=== PATIENT | male | born 1990 | race African-American/Black ===

== ENCOUNTER 2016-12-22 17:08 | Emergency (ER) | payer OTHER ==
[2016-12-22] MEDS ORDERED: METOCLOPRAMIDE 5 MG/ML 2 ML VIAL IVP STA (17:32)
[2016-12-22] MEDS ORDERED: SODIUM CHLORIDE 0.9% 1,000 ML IV STA (17:32)
[2016-12-22] MEDS ORDERED: diphenhydrAMINE 50 MG/ML 1 ML VIAL IVP STA (17:32)
--- NOTE | 2016-12-22 17:37 | ED ---
Headache HPI - General Chief Complaint: Headache Stated Complaint: migraine x 10 days Time Seen by Provider: 12/22/16 17:27 Mode of arrival: ambulatory Limitations: no limitations - History of Present Illness Initial Comments: 26-year-old male patient presents to emergency department today for complaints of right temporal headache on and off throughout the day, for the last 10 days. Patient states that the pain lasts for a couple hours at a time and then will recede. Patient states that the pain is a sharp throbbing pain. Denies any pain behind the eyes. Denies any neck pain, back pain, nausea, vomiting, photophobia, sound sensitivity, dizziness, or weakness. Denies any use of medications, alcohol, or past medical history. Reports occasional use of marijuana with last intake being 2 months ago. - Related Data Home Medications Medication Instructions Recorded Confirmed Ibuprofen [Advil] 200 - 400 mg PO Q6HR PRN 12/22/16 12/22/16 Previous Rx's Medication Instructions Recorded Butalb/Acetaminophen/Caffeine 1 - 2 each PO Q4H PRN #20 tab 12/22/16 [Fioricet 50-325-40] Allergies Allergy/AdvReac Type Severity Reaction Status Date / Time watermelon Allergy Swelling Verified 12/22/16 17:25 Review of Systems ROS Statement: Those systems with pertinent positive or pertinent negative responses have been documented in the HPI. ROS Other: All systems not noted in ROS Statement are negative. Past Medical History Past Medical History: No Reported History History of Any Multi-Drug Resistant Organisms: None Reported Past Surgical History: No Surgical Hx Reported Past Psychological History: No Psychological Hx Reported Smoking Status: Current every day smoker Past Alcohol Use History: Occasional Past Drug Use History: Marijuana General Exam Limitations: no limitations Course Vital Signs 12/22/16 17:15 Temperature 97.7 F Pulse Rate 62 Respiratory 15 Rate Blood Pressure 132/82 O2 Sat by Pulse 99 Oximetry Medical Decision Making - Medical Decision Making 26-year-old male patient presented to emergency department for complaints of headache. Lab work was obtained and was within normal limits. Noncontrast CT of the brain revealed no acute intracranial abnormalities. The patient was given Benadryl and Reglan as well as IV fluids while here which did improve his headache. Patient will be discharged home with Fioricet and instructions to follow up with his primary care physician in 2-3 days for repeat check. Discussed return parameters with patient. Patient agrees to return for any new , worsening, or concerning symptoms. Patient verbalizes understanding of instructions and agreed to this plan. - Lab Data Result diagrams: 12/22/16 17:45 12/22/16 17:45 Lab Results 12/22/16 12/22/16 Range/Units 17:45 17:45 WBC 6.4 (3.8-10.6) k/uL RBC 5.30 (4.30-5.90) m/uL Hgb 16.6 (13.0-17.5) gm/dL Hct 48.0 (39.0-53.0) % MCV 90.6 (80.0-100.0) fL MCH 31.3 (25.0-35.0) pg MCHC 34.6 (31.0-37.0) g/dL RDW 12.2 (11.5-15.5) % Plt Count 206 (150-450) k/uL Neutrophils % 58 % Lymphocytes % 29 % Monocytes % 5 % Eosinophils % 6 % Basophils % 1 % Neutrophils # 3.7 (1.3-7.7) k/uL Lymphocytes # 1.8 (1.0-4.8) k/uL Monocytes # 0.3 (0-1.0) k/uL Eosinophils # 0.4 (0-0.7) k/uL Basophils # 0.0 (0-0.2) k/uL Sodium 138 (137-145) mmol/L Potassium 4.1 (3.5-5.1) mmol/L Chloride 106 (98-107) mmol/L Carbon Dioxide 24 (22-30) mmol/L Anion Gap 8 mmol/L BUN 15 (9-20) mg/dL Creatinine 0.90 (0.66-1.25) mg/dL Est GFR (MDRD) Af Amer >60 (>60 ml/min/1.73 sqM) Est GFR (MDRD) Non-Af >60 (>60 ml/min/1.73 sqM) Glucose 92 (74-99) mg/dL Calcium 8.8 (8.4-10.2) mg/dL Total Bilirubin 0.3 (0.2-1.3) mg/dL AST 22 (17-59) U/L ALT 28 (21-72) U/L Alkaline Phosphatase 35 L (38-126) U/L Total Protein 5.5 L (6.3-8.2) g/dL Albumin 3.4 L (3.5-5.0) g/dL - Radiology Data Radiology results: report reviewed, image reviewed CT of the brain without contrast reveals no acute intracranial hemorrhage, mass effect, or midline shift. The ventricles and sulci appear within normal limits. The globes are intact and visualized sinuses are clear. Impression by Dr. Johansen reveals no acute intracranial hemorrhage, mass effect, or midline shift. Disposition Clinical Impression: Acute headache Disposition: HOME SELF-CARE Condition: Good Instructions: Acute Headache (ED) Additional Instructions: Take Fioricet as needed for headaches. Increase fluid intake. Use cool compresses, dark in the room, and rest when headaches come on. Follow-up with primary care physician in 2-3 days for recheck. Return for any new, worsening, or concerning symptoms. Prescriptions: Butalb/Acetaminophen/Caffeine [Fioricet 50-325-40] 1 - 2 each PO Q4H PRN #20 tab PRN Reason: Headache Referrals: Antonia Lyons MD [STAFF PHYSICIAN] - 1-2 days Time of Disposition: 18:54
[2016-12-22 17:56] LABS: Basophils % (A) 1 %; CH 31.5; CHCM 34.9; Eosinophils # (A) 0.4 k/uL (0-0.7); Eosinophils % (A) 6 %; HDW 2.51; HGB 16.6 gm/dL (13.0-17.5); Luc # (Auto) 0.09; Luc % (Auto) 2; Lymphocytes # (A) 1.8 k/uL (1.0-4.8); Lymphocytes % (A) 29 %; MCH 31.3 pg (25.0-35.0); MCHC 34.6 g/dL (31.0-37.0); MCV 90.6 fL (80.0-100.0); Mean Platelet Volume 9.4; Monocytes # (A) 0.3 k/uL (0-1.0); Monocytes % (A) 5 %; Neutrophils # (A) 3.7 k/uL (1.3-7.7); Neutrophils % (A) 58 %; RDW 12.2 % (11.5-15.5); WBC 6.4 k/uL (3.8-10.6); WBC (Perox) 6.84
[2016-12-22 18:06] LABS: ALT 28 U/L (21-72); AST 22 U/L (17-59); Alkaline Phosphatase 35 U/L (38-126); Anion Gap 8 mmol/L; Blood Urea Nitrogen 15 mg/dL (9-20); Calcium 8.8 mg/dL (8.4-10.2); Carbon Dioxide 24 mmol/L (22-30); Chloride 106 mmol/L (98-107); Glucose 92 mg/dL (74-99); Non-African American GFR(MDRD) >60 (>60 ml/min/1.73 sqM); Potassium 4.1 mmol/L (3.5-5.1); Sodium 138 mmol/L (137-145); Total Bilirubin 0.3 mg/dL (0.2-1.3); Total Protein 5.5 g/dL (6.3-8.2)
--- NOTE | 2016-12-22 18:46 | CT ---
EXAMINATION TYPE: CT brain wo con DATE OF EXAM: 12/22/2016 COMPARISON: NONE HISTORY: Migraine today. CT DLP: 1072.30 mGycm. Automated Exposure Control for Dose Reduction was Utilized. TECHNIQUE: CT scan of the head is performed without contrast. FINDINGS: There is no acute intracranial hemorrhage, mass effect, or midline shift identified. The ventricles and sulci are within normal limits in size. The globes are intact and the visualized sin uses are clear. IMPRESSION: No acute intracranial hemorrhage, mass effect, or midline shift is seen.
[2016-12-22] MEDS ORDERED: IBUPROFEN 600 MG TAB PO STA (18:52)
[2016-12-22] MEDS ORDERED: ACETAMINOPHEN TAB 325 MG TAB PO STA (18:52)
[2016-12-22 19:17] VITALS: BP 132/76; PULSE 56; RESP 18; TEMP 97.9
== END 2016-12-22 19:14 | disposition home or self-care (01) ==
LOC: EC 17:08
DX: R51 Headache (principal); F17.200 Nicotine dependence, unspecified, uncomplicated; Z86.69 Personal history of other diseases of the nervous system and sense organs; Z91.018 Allergy to other foods
CPT/HCPCS: 36415; 80053; 85025; 70450; 99284; 96374; 96375; 96361; J1200; J2765

== ENCOUNTER 2017-10-20 07:22 | Emergency (ER) | payer OTHER ==
[2017-10-20] MEDS ORDERED: IBUPROFEN 800 MG TAB PO STA (07:50)
--- NOTE | 2017-10-20 08:19 | ED ---
General Adult HPI - General Chief complaint: Extremity Injury, Upper Stated complaint: Hand Pain Time Seen by Provider: 10/20/17 07:30 Source: patient, RN notes reviewed Mode of arrival: ambulatory Limitations: no limitations - History of Present Illness Initial comments: This is a 26-year-old male with a prior history of a fractured right hand about 2 or 3 years ago states he's had some pain with it since that time and per his significant other he did take the early he states that over the past 2-3 days she's had pain that first started in his right thumb and when he woke up this morning he has pain to his entire hand that radiates up to the radial aspect of his mid forearm. He states he has problems trying to extend his hand move his thumb he denies any new injury no fevers chills sweats or other symptoms at this time no repetitive movement. His significant other thought he may have slept on it. No other modifying factors the patient is right-hand dominant - Related Data Previous Rx's Medication Instructions Recorded Hydrocodone/Acetaminophen [[place] 1 each PO Q6HR PRN #12 tab 10/20/17 5-325] Ibuprofen 800 mg PO Q6HR PRN #20 tablet 10/20/17 Allergies Allergy/AdvReac Type Severity Reaction Status Date / Time watermelon Allergy Swelling Verified 10/20/17 07:47 Review of Systems ROS Statement: Those systems with pertinent positive or pertinent negative responses have been documented in the HPI. ROS Other: All systems not noted in ROS Statement are negative. Past Medical History Past Medical History: No Reported History History of Any Multi-Drug Resistant Organisms: None Reported Past Surgical History: No Surgical Hx Reported Past Psychological History: No Psychological Hx Reported Smoking Status: Current every day smoker Past Alcohol Use History: Occasional Past Drug Use History: None Reported General Exam - General Exam Comments Initial Comments: This is a well-developed well-nourished awake alert oriented 3 male Limitations: no limitations General appearance: alert, in no apparent distress Head exam: Present: atraumatic, normocephalic, normal inspection Eye exam: Present: normal appearance, PERRL, EOMI. Absent: scleral icterus, conjunctival injection, periorbital swelling ENT exam: Present: normal exam Neck exam: Present: normal inspection, full ROM. Absent: tenderness, meningismus, lymphadenopathy Respiratory exam: Present: normal lung sounds bilaterally. Absent: respiratory distress, wheezes, rales, rhonchi, stridor Cardiovascular Exam: Present: regular rate, normal rhythm, normal heart sounds. Absent: systolic murmur, diastolic murmur, rubs, gallop, clicks Extremities exam: Present: tenderness, normal capillary refill, other (Patient does demonstrate evidence of a prior fracture to the dorsal aspect of the right hand deformity noted. There is marked tenderness palpation over the extensor tendons of the right thumb and over the distal lateral right forearm. Patient states it hurts somewhat she does not want to do a complete exam. Radial and ulnar pulses are maintained. He does have full range of motion of the elbow and shoulder with no tenderness in these aspects.). Absent: full ROM Back exam: Present: full ROM Neurological exam: Present: alert, oriented X3, CN II-XII intact Psychiatric exam: Present: normal affect, anxious Skin exam: Present: warm, dry, intact, normal color. Absent: rash Course Vital Signs 10/20/17 07:25 Temperature 97.4 F L Pulse Rate 90 Respiratory 18 Rate Blood Pressure 138/83 O2 Sat by Pulse 97 Oximetry Procedures - Orthopedic Splinting/Casting Injury #1 Side: right Upper Extremity Immobilizer: thumb spica (Thumb spica OCL, good neurovascular exam after placement.) Medical Decision Making - Medical Decision Making I did discuss the findings with the patient and his significant other. The current presentation is significant for pain over his extensor tendons of his right thumb likely representing de Quervain's tendinitis patient be placed on anti-inflammatories he is to follow-up with orthopedics elevation and warm compresses. - Radiology Data Radiology results: report reviewed (I did review the imaging and report no definite acute findings or is evidence of old fracture with dorsal displacement subluxation the fourth and fifth metacarpal. This is consistent with the patient's prior history.), image reviewed Disposition Clinical Impression: De Quervain's disease (tenosynovitis) Disposition: HOME SELF-CARE Condition: Good Instructions: De Quervain Disease (ED) Prescriptions: Hydrocodone/Acetaminophen [[place] 5-325] 1 each PO Q6HR PRN #12 tab PRN Reason: Pain Ibuprofen 800 mg PO Q6HR PRN #20 tablet PRN Reason: Pain Is patient prescribed a controlled substance at d/c from ED?: No Referrals: None,Stated [Primary Care Provider] - 1-2 days
--- NOTE | 2017-10-20 08:20 | XR ---
Right hand and right forearm HISTORY: Right hand pain 3 views of the right hand and 2 views of the right forearm on a total of 6 images Bone mineralization maintained. Some cortical thickening of the fifth metacarpal may be due to remote fracture now healed. There is some spurring at the carpometacarpal joint of the fifth digit, small o ssific density present between the proximal third and fourth metacarpals and proximal to region of th e fourth and fifth metacarpals appear well-corticated, may be due to remote trauma, secondary osteoar thritic change. Suspected associated soft tissue swelling. Lateral exams not optimally positioned. Qu estion some dorsal displacement, subluxation of the fourth and fifth metacarpals. IMPRESSION: Correlate for history of remote trauma, possible secondary osteoarthritic change. Alignme nt appears distorted at the carpometacarpal joints of the fourth and fifth digits. CT scan of the wri st, orthopedic consult may be of benefit.
--- NOTE | 2017-10-20 09:20 | ED ---
Disposition Clinical Impression: De Quervain's disease (tenosynovitis) Disposition: HOME SELF-CARE Condition: Good Instructions: De Quervain Disease (ED) Prescriptions: Hydrocodone/Acetaminophen [[place] 5-325] 1 each PO Q6HR PRN #12 tab PRN Reason: Pain Ibuprofen 800 mg PO Q6HR PRN #20 tablet PRN Reason: Pain Is patient prescribed a controlled substance at d/c from ED?: No Referrals: None,Stated [Primary Care Provider] - 1-2 days Slade Gutierrez DO [Doctor of Osteopathic Medicine] - 1-2 days
[2017-10-20 09:33] VITALS: BP 154/95; PULSE 78; RESP 16; TEMP 97.8
== END 2017-10-20 09:26 | disposition home or self-care (01) ==
LOC: EC 07:22
DX: M65.4 Radial styloid tenosynovitis [de Quervain] (principal); F17.200 Nicotine dependence, unspecified, uncomplicated; Z91.018 Allergy to other foods; Z87.81 Personal history of (healed) traumatic fracture
CPT/HCPCS: 29125; 99283

== ENCOUNTER 2018-07-02 12:01 | Emergency (ER) | payer OTHER ==
[2018-07-02] MEDS ORDERED: LIDOCAINE 1% INJ 10MG/ML (20 ML MDV) SQ STA (12:33)
[2018-07-02] MEDS ORDERED: DIPH,PERTUS(ACELL)TETVAC-LF 0.5 ML VIAL IM ONE (12:33)
[2018-07-02] MEDS ORDERED: ACETAMINOPHEN TAB 325 MG TAB PO STA (12:43)
--- NOTE | 2018-07-02 13:24 | CT ---
EXAMINATION TYPE: CT brain pedritoine wo con DATE OF EXAM: 07/02/2018 COMPARISON: CT brain December 22, 2016 HISTORY: Eyebrow Laceration injury with headache and neck pain CT DLP: 1409.1 mGycm. Automated Exposure Control for Dose Reduction was Utilized. TECHNIQUE: CT scan of the head and cervical spine are performed without contrast. FINDINGS: There is no acute intracranial hemorrhage, mass effect, or midline shift identified. The ventricles and sulci are within normal limits in size. Nguyen-white matter differentiation is preserve d. The calvarium is intact. The globes are intact bilaterally. The paranasal sinuses are clear. Cervical spine is visualized in its entirety from C1 through upper thoracic levels and demonstrates s traightened alignment without evidence of acute fracture or dislocation. Prevertebral soft tissue ap pears within normal limits. The C1-C2 articulation is within normal limits on the coronal images. V ertebral body heights and disc space heights are maintained. No large posterior disc herniations are seen on sagittal images. Thyroid gland is normal in size. Lung apices are clear. IMPRESSION: 1. There is no acute fracture or dislocation evident in the cervical spine. 2. No acute intracranial hemorrhage, mass effect, or midline shift is seen.
--- NOTE | 2018-07-02 13:43 | ED ---
General Adult HPI - General Chief complaint: Wound/Laceration Stated complaint: Eyebrow Lac Time Seen by Provider: 07/02/18 12:18 Source: patient, RN notes reviewed, old records reviewed Mode of arrival: ambulatory Limitations: no limitations - History of Present Illness Initial comments: 27-year-old male patient with no pertinent past history presents to ED with laceration above right eyebrow. Patient reports of approximately 6 AM this morning his workmen on aluminum door when the door fell backwards striking him in the head, frontal lobe. Patient sustained an approximately 2 cm laceration months time. Patient does complain of a mild frontal lobe headache has been ongoing since trauma. Patient denies any loss of consciousness or other falls. Patient denies any other injury sustained. Patient denies worse headache of life, changes in vision, facial droop, facial weakness, weakness in upper or lower extremities, pain in neck. Patient denies other complaints. Systemic: Pt denies fatigue, myalgia, fever/chills, rash. Pt denies weakness, night sweats, weight loss. Neuro: Pt denies visual disturbances, syncope or pre-syncope. HEENT: Pt denies ocular discharge or irritation, otalgia, rhinorrhea, pharyngitis or notable lymphadenopathy. Cardiopulmonary: Pt denies chest pain, SOB, heart palpitations, dyspnea on exertion. Abdominal/GI: Pt denies abdominal pain, n/v/d. : Pt denies dysuria, burning w/ urination, frequency/urgency. Denies new onset urinary or bowel incontinence. MSK: Pt denies myalgia, loss of strength or function in extremities. Neuro: Pt denies new onset weakness, paresthesias. - Related Data Previous Rx's Medication Instructions Recorded Hydrocodone/Acetaminophen [[place] 1 each PO Q6HR PRN #12 tab 10/20/17 5-325] Ibuprofen 800 mg PO Q6HR PRN #20 tablet 10/20/17 Allergies Allergy/AdvReac Type Severity Reaction Status Date / Time watermelon Allergy Swelling Verified 07/02/18 12:06 Review of Systems ROS Statement: Those systems with pertinent positive or pertinent negative responses have been documented in the HPI. ROS Other: All systems not noted in ROS Statement are negative. Past Medical History Past Medical History: No Reported History History of Any Multi-Drug Resistant Organisms: None Reported Past Surgical History: No Surgical Hx Reported Past Psychological History: No Psychological Hx Reported Smoking Status: Current every day smoker Past Alcohol Use History: Occasional Past Drug Use History: Marijuana General Exam - General Exam Comments Initial Comments: Constitutional: NAD, AOX3, Pt has pleasant affect. HEENT: NC/AT, trachea midline, neck supple, no lymphadenopathy. Posterior pharynx non erythematous, without exudates. External ears appear normal, without discharge. Mucous membranes moist. Eyes PERRLA, EOM intact. There is no scleral icterus. No pallor noted. Cardiopulmonary: RRR, no murmurs, rubs or gallops, no JVD noted. Lungs CTAB in anterior and posterior arango. No peripheral edema. Abdominal exam: Abdomen soft and non-distended. Abdomen non-tender to palpation in all 4 quadrants. Bowel sounds active in LLQ. No hepatosplenomegaly. No ecchymosis Neuro: CN II-XII intact. No nuchal rigidity. No cervical spinal tenderness, full active range of motion of neck. No rachel sign or raccoon eyes. MSK: Approximately 2 cm laceration noted above right eyebrow, closed primarily with 5 simple interrupted sutures. No posterior calf tenderness bilaterally, homans sign negative bilaterally. Posterior tibialis and radial pulse +2 bilaterally. Sensation intact in upper and lower extremities. Full active ROM in upper and lower extremities, 5/5 stregnth. Limitations: no limitations Course Vital Signs 07/02/18 12:08 Temperature 98.3 F Pulse Rate 77 Respiratory 18 Rate Blood Pressure 137/82 O2 Sat by Pulse 97 Oximetry Procedures - Laceration Laceration #1 Consent Obtained: verbal consent Indication: laceration Site: scalp Size (cm): 2 Description: linear Depth: simple, single layer Anesthetic Used: lidocaine 1% Anesthesia Technique: local infiltration Amount (mls): 3 Pre-repair: wound explored, irrigated extensively, deep structures intact Size of Sutures: 6-0 Number of Sutures: 5 Technique: simple, interrupted Patient Tolerated Procedure: well, no complications Medical Decision Making - Medical Decision Making 27-year-old male patient with no pertinent past medical history presents ED after an aluminum door fell forward hitting the floor and causing a 2 cm laceration above his right eye. Patient no loss of consciousness. Patient vital signs stable, afebrile. Physical exam displayed 2 cm laceration above right eye. Normal neurologic exam, no cervical spinal tenderness. CT of head and cervical spine was negative. Wound closed primarily with 5 simple interrupted sutures. Patient to return in 5 days for removal. Patient educated extensively about signs symptoms of infection. Patient to return to ED if new signs symptoms develop or if condition worsens in any way. Case discussed in depth with Dr. Vinson. Disposition Clinical Impression: Laceration Disposition: HOME SELF-CARE Condition: Stable Instructions (If sedation given, give patient instructions): Care For Your Stitches (ED) Additional Instructions: Patient to adhere to previously discussed treatment plan and will take medication(s) as directed. Patient to follow up with PCP in 1-2 days. Patient to return to ED if symptoms do not improve. Is patient prescribed a controlled substance at d/c from ED?: No Referrals: None,Stated [Primary Care Provider] - 1-2 days Time of Disposition: 13:44
[2018-07-02 14:09] VITALS: BP 140/87; PULSE 72; RESP 16; TEMP 98.1
== END 2018-07-02 14:08 | disposition home or self-care (01) ==
LOC: EC 12:01
DX: S01.81XA Laceration without foreign body of other part of head, initial encounter (principal); Z23 Encounter for immunization; F17.200 Nicotine dependence, unspecified, uncomplicated; W20.8XXA Other cause of strike by thrown, projected or falling object, initial encounter
CPT/HCPCS: 72125; 70450; 90715; 99284; 12011; 90471; J2001

== ENCOUNTER 2023-07-05 20:50 | Emergency (ER) | payer OTHER ==
[2023-07-05] MEDS ORDERED: KETOROLAC 15 MG/ML 1 ML VIAL IM STA (21:41)
[2023-07-05 21:42] VITALS: BP 142/88; PULSE 62; RESP 18; TEMP 98.7
--- NOTE | 2023-07-05 21:43 | ED ---
ENT HPI - General Chief complaint: Dental/Oral Stated complaint: tooth pain Time Seen by Provider: 07/05/23 21:02 Source: patient Mode of arrival: ambulatory Limitations: no limitations - History of Present Illness Initial comments: 32-year-old male presenting to the ED with a chief complaint of dental pain. Patient states for the last week has had intermittent dental pain however reports lately it has started to become more constant and has increased in pain. No dyspnea. No dysphagia. No fever or chills. Patient reports that he is trying to set up dentist appointment for within the week. No other complaints at this time. - Related Data Previous Rx's Medication Instructions Recorded Hydrocodone/Acetaminophen [[place] 1 each PO Q6HR PRN #12 tab 10/20/17 5-325] Ibuprofen 800 mg PO Q6HR PRN #20 tablet 10/20/17 Acetaminophen Tab [Tylenol] 500 mg PO Q6H PRN #60 tablet 07/05/23 Amoxic-Pot Clav 875-125Mg 1 tab PO Q12HR 7 Days #14 tab 07/05/23 [Augmentin 875-125] Ibuprofen [Motrin] 600 mg PO Q8HR PRN #30 tab 07/05/23 Allergies Allergy/AdvReac Type Severity Reaction Status Date / Time watermelon Allergy Swelling Verified 07/05/23 20:59 Review of Systems ROS Statement: Those systems with pertinent positive or pertinent negative responses have been documented in the HPI. ROS Other: All systems not noted in ROS Statement are negative. Past Medical History Past Medical History: No Reported History History of Any Multi-Drug Resistant Organisms: None Reported Past Surgical History: No Surgical Hx Reported Past Psychological History: No Psychological Hx Reported Smoking Status: Never smoker Past Alcohol Use History: Occasional Past Drug Use History: Marijuana General Exam Limitations: no limitations General appearance: alert, in no apparent distress ENT exam: Present: other (Small dental carry lower right premolar. No surrounding abscess. Tolerating secretions. No significant oropharyngeal swelling. No stridor.) Respiratory exam: Present: normal lung sounds bilaterally Cardiovascular Exam: Present: regular rate, normal rhythm GI/Abdominal exam: Present: soft Neurological exam: Present: alert, oriented X3 Skin exam: Present: warm, dry Course Vital Signs 07/05/23 20:58 Temperature 98.7 F Pulse Rate 62 Respiratory 18 Rate Blood Pressure 142/88 O2 Sat by Pulse 99 Oximetry Medical Decision Making - Medical Decision Making Was pt. sent in by a medical professional or institution (ERAN Marin, SHOOK MACHINE OPERATOR, urgent care, hospital, or fpc...) When possible be specific @ -No Did you speak to anyone other than the patient for history (EMS, parent, family, police, friend...)? What history was obtained from this source @ -No Did you review nursing and triage notes (agree or disagree)? Why? @ -I reviewed and agree with nursing and triage notes Were old charts reviewed (outside hosp., previous admission, EMS record, old EKG, old radiological studies, urgent care reports/EKG's, fpc records)? Report findings @ -No old charts were reviewed Differential Diagnosis (chest pain, altered mental status, abdominal pain women, abdominal pain men, vaginal bleeding, weakness, fever, dyspnea, syncope, headache, dizziness, GI bleed, back pain, seizure, CVA, palpatations, mental health, musculoskeletal)? @ -Con's angina, ANUG, periapical abscess. This is not meant to be an all- inclusive list. EKG interpreted by me (3pts min.). @ -None X-rays interpreted by me (1pt min.). @ -None done CT interpreted by me (1pt min.). @ -None done U/S interpreted by me (1pt. min.). @ -None done What testing was considered but not performed or refused? (CT, X-rays, U/S, labs)? Why? @ -None What meds were considered but not given or refused? Why? @ -None Did you discuss the management of the patient with other professionals (professionals i.e. ERAN Marin, SHOOK MACHINE OPERATOR, lab, RT, psych nurse, manager social, grocery clerk selling, teacher, command and control officer, showcase trimmer)? Give summary @ -No Was smoking cessation discussed for >3mins.? @ -No Was critical care preformed (if so, how long)? @ -No Were there social determinants of health that impacted care today? How? (Homelessness, low income, unemployed, alcoholism, drug addiction, transportation, low edu. Level, literacy, decrease access to med. care, fci, rehab)? @ -No Was there de-escalation of care discussed even if they declined (Discuss DNR or withdrawal of care, Hospice)? DNR status @ -No What co-morbidities impacted this encounter? (DM, HTN, Smoking, COPD, CAD, Can cer, CVA, ARF, Chemo, Hep., AIDS, mental health diagnosis, sleep apnea, morbid obesity)? @ -None Was patient admitted / discharged? Hospital course, mention meds given and route, prescriptions, significant lab abnormalities, going to OR and other pertinent info. @ -Discharge 32-year-old male presenting to the ED with dental pain progressively worsening over the past week. On exam there is a small dental carry the lower left tooth. Patient provided Toradol in the ED and prescriptions for ibuprofen, acetaminophen, and Augmentin. Patient verbalized that he will be setting up a dentist appointment within the week. At this time vital signs stable afebrile. Discussed return precautions with patient who verbalized agreement. Undiagnosed new problem with uncertain prognosis? @ -No Drug Therapy requiring intensive monitoring for toxicity (Heparin, Nitro, Insulin, Cardizem)? @ -No Were any procedures done? @ -No Diagnosis/symptom? @ -Dental pain Acute, or Chronic, or Acute on Chronic? @ -Acute Uncomplicated (without systemic symptoms) or Complicated (systemic symptoms)? @ -Uncomplicated Side effects of treatment? @ -No Exacerbation, Progression, or Severe Exacerbation? @ -No Poses a threat to life or bodily function? How? (Chest pain, [place], [place], pneumonia, PE, COPD, DKA, ARF, appy, cholecystitis, CVA, Diverticulitis, Homicidal, Suicidal, threat to staff... and all critical care pts) @ -No Disposition Clinical Impression: Pain, dental Disposition: HOME SELF-CARE Condition: Good Instructions (If sedation given, give patient instructions): Toothache (ED) Additional Instructions: Please return to the Emergency Department if symptoms worsen or any other concerns. Please follow-up with your dentist Prescriptions: Amoxic-Pot Clav 875-125Mg [Augmentin 875-125] 1 tab PO Q12HR 7 Days #14 tab Ibuprofen [Motrin] 600 mg PO Q8HR PRN #30 tab PRN Reason: Pain Acetaminophen Tab [Tylenol] 500 mg PO Q6H PRN #60 tablet PRN Reason: Pain Is patient prescribed a controlled substance at d/c from ED?: No Referrals: None,Stated [Primary Care Provider] - 1-2 days Time of Disposition: :46
[2023-07-05] MEDS ORDERED: IBUPROFEN 600 MG STARTER PACK 4 TAB BTL PO STA (21:49)
[2023-07-05] MEDS ORDERED: AMOXIC-POT CLAV 875MG STARTER PACK 2 TAB BTL PO STA (21:49)
== END 2023-07-05 22:04 | disposition home or self-care (01) ==
LOC: EC 20:50
DX: K02.9 Dental caries, unspecified (principal); F12.90 Cannabis use, unspecified, uncomplicated; Z91.018 Allergy to other foods
CPT/HCPCS: 99283; 96372; J1885

== ENCOUNTER 2023-10-24 13:08 | Emergency (ER) | payer OTHER ==
[2023-10-24 13:29] VITALS: BP 159/94; PULSE 57; RESP 18; TEMP 97.9
[2023-10-24] MEDS: KETOROLAC 15 MG/ML 1 ML VIAL IM STA (15:00)
--- NOTE | 2023-10-24 17:13 | ED ---
General Adult HPI - General Chief complaint: Skin/Abscess/Foreign Body Stated complaint: Back Pain Time Seen by Provider: 10/24/23 14:23 Source: patient, RN notes reviewed Mode of arrival: ambulatory Limitations: no limitations - History of Present Illness Initial comments: 32-year-old male presents to the emergency department for evaluation of back aidan n with a lump on his back. He states that this is been present for around 2 weeks. He reports that his states that it has been getting bigger. He states that prior to noticing the lump, he had some pain in the region. He states that it was worse when he was working a different job. Admits to taking Tylenol for pain. He denies injury, denies fever, chills, skin changes. He reports he otherwise feels well. - Related Data Previous Rx's Medication Instructions Recorded Hydrocodone/Acetaminophen [[place] 1 each PO Q6HR PRN #12 tab 10/20/17 5-325] Ibuprofen 800 mg PO Q6HR PRN #20 tablet 10/20/17 Acetaminophen Tab [Tylenol] 500 mg PO Q6H PRN #60 tablet 07/05/23 Amoxic-Pot Clav 875-125Mg 1 tab PO Q12HR 7 Days #14 tab 07/05/23 [Augmentin 875-125] Ibuprofen [Motrin] 600 mg PO Q8HR PRN #30 tab 07/05/23 Allergies Allergy/AdvReac Type Severity Reaction Status Date / Time watermelon Allergy Swelling Verified 07/05/23 20:59 Review of Systems ROS Statement: Those systems with pertinent positive or pertinent negative responses have been documented in the HPI. ROS Other: All systems not noted in ROS Statement are negative. Past Medical History Past Medical History: No Reported History History of Any Multi-Drug Resistant Organisms: None Reported Past Surgical History: No Surgical Hx Reported Past Psychological History: No Psychological Hx Reported Smoking Status: Never smoker Past Alcohol Use History: Rare Past Drug Use History: Marijuana General Exam Limitations: no limitations General appearance: alert, in no apparent distress Head exam: Present: atraumatic, normocephalic, normal inspection Eye exam: Present: normal appearance, PERRL, EOMI. Absent: scleral icterus, conjunctival injection, periorbital swelling ENT exam: Present: normal exam, mucous membranes moist Neck exam: Present: normal inspection. Absent: tenderness, meningismus, lymphadenopathy Respiratory exam: Present: normal lung sounds bilaterally. Absent: respiratory distress, wheezes, rales, rhonchi, stridor Cardiovascular Exam: Present: regular rate, normal rhythm, normal heart sounds. Absent: systolic murmur, diastolic murmur, rubs, gallop, clicks Extremities exam: Present: normal inspection, full ROM, normal capillary refill. Absent: tenderness, pedal edema, joint swelling, calf tenderness Back exam: Present: other Neurological exam: Present: alert, oriented X3 Psychiatric exam: Present: normal affect, normal mood Skin exam: Present: warm, dry, intact, normal color, other (soft tissue mass to left upper back measuring 5cm radius) Course Vital Signs 10/24/23 13:09 Temperature 97.9 F Pulse Rate 57 L Respiratory 18 Rate Blood Pressure 159/94 O2 Sat by Pulse 100 Oximetry Medical Decision Making - Medical Decision Making Was pt. sent in by a medical professional or institution (, PA, PIPE FITTER HELPER, urgent care, hospital, or fci...) When possible be specific @ -No Did you speak to anyone other than the patient for history (EMS, parent, family, police, friend...)? What history was obtained from this source @ -No Did you review nursing and triage notes (agree or disagree)? Why? @ -I reviewed and agree with nursing and triage notes Were old charts reviewed (outside hosp., previous admission, EMS record, old EKG, old radiological studies, urgent care reports/EKG's, fci records)? Report findings @ -No old charts were reviewed Differential Diagnosis (chest pain, altered mental status, abdominal pain women, abdominal pain men, vaginal bleeding, weakness, fever, dyspnea, syncope, headache, dizziness, GI bleed, back pain, seizure, CVA, palpatations, mental health, musculoskeletal)? @ -Differential Back Pain: Strain, zoster, cauda equina syndrome, epidural abscess, vertebral osteomyelitis, discitis, fracture, subluxation, disc herniation, DJD, spinal s tenosis, dissection, AAA, pancreatitis, peptic ulcer disease, pyelonephritis, kidney stone, this is not meant to be an all-inclusive list. EKG interpreted by me (3pts min.). @ -None X-rays interpreted by me (1pt min.). @ -None done CT interpreted by me (1pt min.). @ -None done U/S interpreted by me (1pt. min.). @ -US obtained which shows possible lipoma What testing was considered but not performed or refused? (CT, X-rays, U/S, labs)? Why? @ -None What meds were considered but not given or refused? Why? @ -None Did you discuss the management of the patient with other professionals (tosha tyson i.e. , PA, PIPE FITTER HELPER, lab, RT, psych nurse, social media assistant, medical care evaluation specialist, teacher, drug abuse resistance education officer, manager of case)? Give summary @ -No Was smoking cessation discussed for >3mins.? @ -No Was critical care preformed (if so, how long)? @ -No Were there social determinants of health that impacted care today? How? (Homelessness, low income, unemployed, alcoholism, drug addiction, transportation, low edu. Level, literacy, decrease access to med. care, shelter, rehab)? @ -No Was there de-escalation of care discussed even if they declined (Discuss DNR or withdrawal of care, Hospice)? DNR status @ -No What co-morbidities impacted this encounter? (DM, HTN, Smoking, COPD, CAD, Cancer, CVA, ARF, Chemo, Hep., AIDS, mental health diagnosis, sleep apnea, morbid obesity)? @ -None Was patient admitted / discharged? Hospital course, mention meds given and route, prescriptions, significant lab abnormalities, going to OR and other pertinent info. @ -Discharged. Patient presented to the emergency department for evaluation of lump on his back which has been progressively getting worse. US obtained. There was delayed radiology read of ultrasound. Patient left prior to results. Undiagnosed new problem with uncertain prognosis? @ -No Drug Therapy requiring intensive monitoring for toxicity (Heparin, Nitro, Insulin, Cardizem)? @ -No Were any procedures done? @ -No Diagnosis/symptom? @ -Lipoma Acute, or Chronic, or Acute on Chronic? @ -Acute on chronic Uncomplicated (without systemic symptoms) or Complicated (systemic symptoms)? @ -Uncomplicated Side effects of treatment? @ -No Exacerbation, Progression, or Severe Exacerbation? @ -No Poses a threat to life or bodily function? How? (Chest pain, [place], [place], pneumonia, PE, COPD, DKA, ARF, appy, cholecystitis, CVA, Diverticulitis, Homicidal, Brisa cidal, threat to staff... and all critical care pts) @ -No Disposition Clinical Impression: Lipoma Disposition: LEFT AGAINST MEDICAL ADVICE Condition: Stable Is patient prescribed a controlled substance at d/c from ED?: No Referrals: None,Stated [Primary Care Provider] - 1-2 days
--- NOTE | 2023-10-24 19:08 | US ---
EXAMINATION TYPE: US mass soft tissue chest/back DATE OF EXAM: 10/24/2023 COMPARISON: NONE CLINICAL INDICATION: Male, 32 years old with history of left back; lump upper left back x 1 week TECHNIQUE: Grayscale sonography and limited color Doppler was utilized in the area of concern. FINDINGS: Hypoechoic to isoechoic ovoid masslike area seen left upper back under shoulder blade butch uring 4.4 x 1.6 x 3.3 cm. Minimal internal vascularity seen on color Doppler. IMPRESSION: Ovoid mass in the area of concern, favored to represent lipoma.
== END 2023-10-24 19:00 | disposition left against medical advice (07) ==
LOC: EC 13:08
DX: D17.9 Benign lipomatous neoplasm, unspecified (principal); F12.90 Cannabis use, unspecified, uncomplicated; Z91.018 Allergy to other foods; Z53.29 Procedure and treatment not carried out because of patient's decision for other reasons
CPT/HCPCS: 76604; 99283; 96372; J1885

== ENCOUNTER 2023-11-11 10:15 | Emergency (ER) | payer OTHER ==
[2023-11-11 10:18] VITALS: BP 141/95; PULSE 59; RESP 16; TEMP 97.6
--- NOTE | 2023-11-11 10:33 | ED ---
Chest Pain HPI - General Source: patient, RN notes reviewed Mode of arrival: ambulatory Limitations: no limitations <Katiana Adams - Last Filed: 11/11/23 10:32> <Kenrick Kearns - Last Filed: 11/11/23 12:50> - General Chief Complaint: Chest Pain Stated Complaint: chest pain Time Seen by Provider: 11/11/23 10:32 - History of Present Illness Initial Comments: Quick note: 33-year-old male presenting to the ER with a chief complaint of chest pain. Patient reports has been going on for the past 2 to 3 days. He a lso is endorsing shortness of breath and diaphoresis. No known cardiac history. (Katiana Adams) 33-year-old male who presents emergency department complaining of chest pain. Patient states has been ongoing for last 2 or 3 days. Patient states it started after he had a coughing fit and then it would hurt worse with palpation. Patient denies any shortness of breath or difficulty breathing. Patient states the pain now is much better than it has been but if he presses on he can still feel it. Patient denies any nausea patient denies any abdominal pain patient has any back pain. Patient denies any radiation of the pain. Patient states he has had no recent fever but he did have that 1 good coughing episode a couple days ago. Denies any smoking diabetes hypertension high cholesterol patient denies any family history mother father brother sister with heart attacks or heart disease (Kenrick Kearns) - Related Data Previous Rx's Medication Instructions Recorded Hydrocodone/Acetaminophen [[place] 1 each PO Q6HR PRN #12 tab 10/20/17 5-325] Ibuprofen 800 mg PO Q6HR PRN #20 tablet 10/20/17 Acetaminophen Tab [Tylenol] 500 mg PO Q6H PRN #60 tablet 07/05/23 Amoxic-Pot Clav 875-125Mg 1 tab PO Q12HR 7 Days #14 tab 07/05/23 [Augmentin 875-125] Ibuprofen [Motrin] 600 mg PO Q8HR PRN #30 tab 07/05/23 Allergies Allergy/AdvReac Type Severity Reaction Status Date / Time watermelon Allergy Swelling Verified 11/11/23 10:18 Review of Systems ROS Other: All systems not noted in ROS Statement are negative. <Katiana Adams - Last Filed: 11/11/23 10:32> ROS Other: All systems not noted in ROS Statement are negative. <Kenrick Kearns - Last Filed: 11/11/23 12:50> ROS Statement: Those systems with pertinent positive or pertinent negative responses have been documented in the HPI. Past Medical History Past Medical History: No Reported History History of Any Multi-Drug Resistant Organisms: None Reported Past Surgical History: No Surgical Hx Reported Past Psychological History: No Psychological Hx Reported Smoking Status: Never smoker Past Alcohol Use History: Rare Past Drug Use History: Marijuana <Katiana Adams - Last Filed: 11/11/23 10:32> General Exam Limitations: no limitations <AlexsawKatiana - Last Filed: 11/11/23 10:32> <Kenrick Kearns - Last Filed: 11/11/23 12:50> - General Exam Comments Initial Comments: Visual Physical Exam Vital signs reviewed General: Well-appearing, nontoxic, no acute distress. Head: Normocephalic, atraumatic Eyes: PERRLA, EOMI ENT: Airway patent Chest: Nonlabored breathing Skin: No visual rash, normal skin tone Neuro: Alert and oriented 3 Musculoskeletal: No gross abnormalities (Katiana Adams) GENERAL: Patient is well-developed and well-nourished. Patient is nontoxic and well- hydrated and is in no acute distress. ENT: Neck is soft and supple. No significant lymphadenopathy is noted. Oropharynx is clear. Moist mucous membranes. Neck has full range of motion without eliciting any pain. EYES: The sclera were anicteric and conjunctiva were pink and moist. Extraocular movements were intact and pupils were equal round and reactive to light. Eyelids were unremarkable. PULMONARY: Unlabored respirations. Good breath sounds bilaterally. No audible rales rhonchi or wheezing was noted. CARDIOVASCULAR: There is a regular rate and rhythm without any murmurs gallops or rubs. I can palpate just to the left of the sternum and it is reproducible pain there he states is the same pain he was experiencing ABDOMEN: Soft and nontender with normal bowel sounds. No palpable organomegaly was noted. There is no palpable pulsatile mass. SKIN: Skin is clear with no lesions or rashes and otherwise unremarkable. NEUROLOGIC: Patient is alert and oriented x3. Cranial nerves II through XII are grossly intact. Motor and sensory are also intact. Normal speech, volume and content. Symmetrical smile. MUSCULOSKELETAL: Normal extremities with adequate strength and full range of motion. No lower extremity swelling or edema. No calf tenderness. LYMPHATICS: No significant lymphadenopathy is noted PSYCHIATRIC: Normal psychiatric evaluation. (Kenrick Kearns) Course Vital Signs 11/11/23 10:16 Temperature 97.6 F Pulse Rate 59 L Respiratory 16 Rate Blood Pressure 141/95 O2 Sat by Pulse 100 Oximetry Chest Pain MDM <Katiana Adams - Last Filed: 11/11/23 10:32> - Core Measures AMI Core Measures Followed: Yes <Kenrick Kearns - Last Filed: 11/11/23 12:50> - MDM I performed the quick note portion of this chart. Electronically signed by Katiana Adams PA-C (Katiana Adams) EKG is interpreted by myself but EKG shows a sinus bradycardia 54 bpm [place] interval is 143 QRS 113 QT interval is 396 QTc is 382. Patient's EKG shows no ST segment elevation. Was pt. sent in by a medical professional or institution (ERAN Marin, AUDIOLOGY DOCTOR, urgent care, hospital, or long term...) When possible be specific @ -No Did you speak to anyone other than the patient for history (EMS, parent, family, police, friend...)? What history was obtained from this source @ -No Did you review nursing and triage notes (agree or disagree)? Why? @ -I reviewed and agree with nursing and triage notes Were old charts reviewed (outside hosp., previous admission, EMS record, old EKG, old radiological studies, urgent care reports/EKG's, long term records)? Report findings @ -No old charts were reviewed Differential Diagnosis (chest pain, altered mental status, abdominal pain women, abdominal pain men, vaginal bleeding, weakness, fever, dyspnea, syncope, headache, dizziness, GI bleed, back pain, seizure, CVA, palpatations, mental health, musculoskeletal)? @ -Differential Chest Pain: Stable Angina, Unstable Angina, STEMI, NSTEMI Aortic Dissection, Pneumothorax, Musculoskeletal, Esophageal Spasm GERD, Cholecystitis, Pancreatitis, Zoster, this is not meant to be an all-inclusive list. EKG interpreted by me (3pts min.). @ -As above X-rays interpreted by me (1pt min.). @ -X-ray shows no acute abnormality CT interpreted by me (1pt min.). @ -None done U/S interpreted by me (1pt. min.). @ -None done What testing was considered but not performed or refused? (CT, X-rays, U/S, labs)? Why? @ -None What meds were considered but not given or refused? Why? @ -None Did you discuss the management of the patient with other professionals (professionals i.e. , PA, AUDIOLOGY DOCTOR, lab, RT, psych nurse, social media assistant, grounds/maintenance specialist, teacher, tactical debriefer officer, transplant case manager)? Give summary @ -No Was smoking cessation discussed for >3mins.? @ -No Was critical care preformed (if so, how long)? @ -No Were there social determinants of health that impacted care today? How? (Homelessness, low income, unemployed, alcoholism, drug addiction, transportation, low edu. Level, literacy, decrease access to med. care, [facility], rehab)? @ -No Was there de-escalation of care discussed even if they declined (Discuss DNR or withdrawal of care, Hospice)? DNR status @ -No What co-morbidities impacted this encounter? (DM, HTN, Smoking, COPD, CAD, Cancer, CVA, ARF, Chemo, Hep., AIDS, mental health diagnosis, sleep apnea, morbid obesity)? @ -None Was patient admitted / discharged? Hospital course, mention meds given and route, prescriptions, significant lab abnormalities, going to OR and other pertinent info. @ -When I went out to see the patient in the waiting room he stated his pain was much better but it was still was reproducible with palpation patient states has been ongoing for a couple of days but since it was reproducible and his enzymes and blood work were normal I feel comfortable letting the patient go home and follow-up. Patient states he will follow-up and try to get a doctor Undiagnosed new problem with uncertain prognosis? @ -No Drug Therapy requiring intensive monitoring for toxicity (Heparin, Nitro, Insulin, Cardizem)? @ -No Were any procedures done? @ -No Diagnosis/symptom? @ -Chest wall pain Acute, or Chronic, or Acute on Chronic? @ -Default Uncomplicated (without systemic symptoms) or Complicated (systemic symptoms)? @ -Uncomplicated Side effects of treatment? @ -No Exacerbation, Progression, or Severe Exacerbation? @ -No Poses a threat to life or bodily function? How? (Chest pain, [place], [place], pneumonia, PE, COPD, DKA, ARF, appy, cholecystitis, CVA, Diverticulitis, Homicidal, Suicidal, threat to staff... and all critical care pts) @ -No (Kenrick Kearns) Disposition <Katiana Adams - Last Filed: 11/11/23 10:32> Is patient prescribed a controlled substance at d/c from ED?: No Time of Disposition: 12:49 <Kenrick Kearns - Last Filed: 11/11/23 12:50> Clinical Impression: Chest wall pain Disposition: HOME SELF-CARE Condition: Good Instructions (If sedation given, give patient instructions): Chest Pain (ED), Chest Wall Pain (ED) Additional Instructions: Patient needs to get her primary medical care doctor. Patient should return to the emergency department if the pain changes or worsens in any way. Patient also returns and shortness of breath Referrals: None,Stated [Primary Care Provider] - 1-2 days
[2023-11-11 10:44] LABS: Basophils % (A) 1 %; Eosinophils # (A) 0.2 k/uL (0-0.7); Eosinophils % (A) 4 %; HCT 47.3 % (39.0-53.0); HGB 15.7 gm/dL (13.0-17.5); Lymphocytes # (A) 1.6 k/uL (1.0-4.8); Lymphocytes % (A) 31 %; MCH 30.5 pg (25.0-35.0); MCHC 33.2 g/dL (31.0-37.0); MCV 91.9 fL (80.0-100.0); Mean Platelet Volume 10.5; Monocytes # (A) 0.3 k/uL (0-1.0); Monocytes % (A) 5 %; Neutrophils % (A) 58 %; Platelet Count 180 k/uL (150-450); RBC 5.15 m/uL (4.30-5.90); RDW 12.2 % (11.5-15.5); WBC 5.2 k/uL (3.8-10.6)
--- NOTE | 2023-11-11 10:56 | XR ---
EXAMINATION TYPE: XR chest 2V DATE OF EXAM: 11/11/2023 COMPARISON: 09/25/2015 TECHNIQUE: PA and lateral views submitted. HISTORY: Chest pain FINDINGS: The lungs are clear and there is no pneumothorax, pleural effusion, or focal pneumonia. Heart size normal and no overt failure. Osseous structures intact. IMPRESSION: 1. No acute process.
[2023-11-11 10:58] LABS: INR 1.1 (<1.2); Partial Thromboplastin Time 24.8 sec (22.0-30.0); Prothrombin Time 11.7 sec (10.0-12.5)
[2023-11-11 10:59] LABS: ALT 27 U/L (4-49); AST 30 U/L (17-59); African American GFR (CKD) >90 (>60 ml/min/1.73 sqM); Albumin 4.3 g/dL (3.5-5.0); Alkaline Phosphatase 58 U/L (38-126); Anion Gap 7 mmol/L; Blood Urea Nitrogen 13 mg/dL (9-20); Calcium 9.3 mg/dL (8.4-10.2); Carbon Dioxide 22 mmol/L (22-30); Chloride 110 mmol/L (98-107); Glucose 109 mg/dL (74-99); Magnesium 1.9 mg/dL (1.6-2.3); Non-African American GFR(CKD) >90 (>60 ml/min/1.73 sqM); Potassium 3.8 mmol/L (3.5-5.1); Sodium 139 mmol/L (137-145); Total Bilirubin 0.7 mg/dL (0.2-1.3); Total Protein 6.9 g/dL (6.3-8.2)
== END 2023-11-11 13:05 | disposition home or self-care (01) ==
LOC: EC 10:15
DX: R07.89 Other chest pain (principal); R00.1 Bradycardia, unspecified; F12.90 Cannabis use, unspecified, uncomplicated; Z91.018 Allergy to other foods
CPT/HCPCS: 36415; 71046; 80053; 83735; 84484; 85025; 85610; 85730; 93005; 99285

== ENCOUNTER 2024-08-26 17:19 | Emergency (ER) | payer OTHER ==
--- NOTE | 2024-08-26 17:57 | ED ---
Extremity Problem HPI - General Source: patient Mode of arrival: ambulatory Limitations: no limitations <Kishan Urban - Last Filed: 08/26/24 18:29> <Uday Brady - Last Filed: 08/26/24 18:49> - General Chief complaint: Extremity Problem,Nontraumatic Stated complaint: left shoulder pain - History of Present Illness Initial comments: 33-year-old male with no past medical history presents to the ER with acute onset cystlike lesion on his left scapula that started about 2 days ago. Patient denies any recent injuries or trauma to the area. Does not take any medications. Patient reports that he woke up with this round circular lesion on his left scapula with a throbbing pain sensation. Currently reports the pain to be 8 out of 10. Never had any issues like this before. Patient denies fever, chills, nausea, vomiting, chest pain, shortness of breath, diarrhea, constipation. (Kishan Urban) - Related Data Previous Rx's Medication Instructions Recorded Hydrocodone/Acetaminophen [Page 1 each PO Q6HR PRN #12 tab 10/20/17 5-325] Ibuprofen 800 mg PO Q6HR PRN #20 tablet 10/20/17 Acetaminophen Tab [Tylenol] 500 mg PO Q6H PRN #60 tablet 07/05/23 Amoxic-Pot Clav 875-125Mg 1 tab PO Q12HR 7 Days #14 tab 07/05/23 [Augmentin 875-125] Ibuprofen [Motrin] 600 mg PO Q8HR PRN #30 tab 07/05/23 Allergies Allergy/AdvReac Type Severity Reaction Status Date / Time watermelon Allergy Swelling Verified 08/26/24 17:26 Review of Systems ROS Other: All systems not noted in ROS Statement are negative. Constitutional: Denies: fever, chills ENT: Denies: ear pain, throat pain Respiratory: Denies: cough, dyspnea, wheezes Cardiovascular: Denies: chest pain, palpitations Endocrine: Denies: fatigue Gastrointestinal: Denies: abdominal pain, nausea, vomiting Genitourinary: Denies: urgency, dysuria Skin: Reports: lesions. Denies: rash <Kishan Urban - Last Filed: 08/26/24 18:29> ROS Other: All systems not noted in ROS Statement are negative. <Uday Brady - Last Filed: 08/26/24 18:49> ROS Statement: Those systems with pertinent positive or pertinent negative responses have been documented in the HPI. Past Medical History Past Medical History: No Reported History History of Any Multi-Drug Resistant Organisms: None Reported Past Surgical History: No Surgical Hx Reported Past Psychological History: No Psychological Hx Reported Smoking Status: Never smoker Past Alcohol Use History: Rare Past Drug Use History: Marijuana <Kishan Urban - Last Filed: 08/26/24 18:29> General Exam Limitations: no limitations <Kishan Urban - Last Filed: 08/26/24 18:29> - General Exam Comments Initial Comments: GENERAL: This is a 33-year-old in no apparent distress at the time of examination. Pleasant and cooperative. HEENT: Head is atraumatic, normocephalic. Pupils are equal, round, and reactive to light. Sclerae anicteric. Conjunctivae are clear. Mucus membranes of the mouth are moist. Neck is supple. RESPIRATORY: Clear to auscultation. No wheezes, rales, or rhonchi. No use of accessory muscles. Patient maintaining oxygen saturation greater than 92%. No chest wall tenderness is noted on palpation or with deep breathing. CARDIOVASCULAR: Regular rate and rhythm. S1 and S2 noted. No systolic or diasto lic murmur auscultated. No JVD noted. No S3 or S4 noted. GASTROINTESTINAL: No distention noted. Abdomen soft and round. Normal active bowel sounds auscultated x 4 quadrants. No pain or tenderness noted upon palpation. INTEGUMENTARY: No cyanosis. No jaundice. No rashes noted. No cellulitis noted. A 5 cm diameter cystic lesion noted on left scapula with tenderness to palpation and signs of swelling EXTREMITIES: 2+ peripheral pulses. No evidence of peripheral edema. No calf tenderness noted. NEUROLOGIC: Cranial nerves II-XII intact. PSYCHIATRIC: Awake, alert, and oriented X 3. Appropriate affect. Intact judgement and insight. (Kishan Urban) Course Vital Signs 08/26/24 17:24 Temperature 98.6 F Pulse Rate 78 Respiratory 18 Rate Blood Pressure 142/89 O2 Sat by Pulse 99 Oximetry Medical Decision Making <Kishan Urban - Last Filed: 08/26/24 18:29> <Uday Brady - Last Filed: 08/26/24 18:49> - Medical Decision Making Was pt. sent in by a medical professional or institution (ERAN Marin, CERTIFIED CORPORATE TRAVEL EXECUTIVE, urgent care, hospital, or prison...) When possible be specific @ -[No] Did you speak to anyone other than the patient for history (EMS, parent, family, police, friend...)? What history was obtained from this source @ -[No] Did you review nursing and triage notes (agree or disagree)? Why? @ -[I reviewed and agree with nursing and triage notes] Were old charts reviewed (outside hosp., previous admission, EMS record, old EKG, old radiological studies, urgent care reports/EKG's, prison records)? Report findings @ -[No old charts were reviewed] Differential Diagnosis? @ -Abscess, hematoma, lipoma EKG interpreted by me (3pts min.). @ -[As above] X-rays interpreted by me (1pt min.). @ -[None done] CT interpreted by me (1pt min.). @ -[None done] U/S interpreted by me (1pt. min.). @ -[None done] What testing was considered but not performed or refused? (CT, X-rays, U/S, labs)? Why? @ -[None] What meds were considered but not given or refused? Why? @ -[None] Did you discuss the management of the patient with other professionals (professionals i.e. ERAN Marin, CERTIFIED CORPORATE TRAVEL EXECUTIVE, lab, RT, psych nurse, director social welfare, waste transportation technician, teacher, recruitment officer, case finisher)? Give summary @ -Discussed with attending physician Was smoking cessation discussed for >3mins.? @ -[No] Was critical care preformed (if so, how long)? @ -[No] Were there social determinants of health that impacted care today? How? (Homelessness, low income, unemployed, alcoholism, drug addiction, transportation, low edu. Level, literacy, decrease access to med. care, fci, rehab)? @ -[No] Was there de-escalation of care discussed even if they declined (Discuss DNR or withdrawal of care, Hospice)? DNR status @ -[No] What co-morbidities impacted this encounter? (DM, HTN, Smoking, COPD, CAD, Cancer, CVA, ARF, Chemo, Hep., AIDS, mental health diagnosis, sleep apnea, mor bid obesity)? @ -[None] Was patient admitted / discharged? Hospital course, mention meds given and route, prescriptions, significant lab abnormalities, going to OR and other pertinent info. @ -33-year-old male with no past medical problems presented with cyst like lesion on scapula that started 2 days ago. Reports tenderness to palpation, swelling. Physical exam showed a 5 cm diameter cystlike lesion on left scapula with signs of swelling and tenderness to palpation. Lesion is mobile and nonfluctuant. Given these findings, less likely to be an abscess or lipoma. Most likely the lesion is due to a hematoma. Will discharge patient home. Advised patient to take for pain. Use ice packs to reduce swelling. Will prescribe Tylenol starter pack in the ED. Undiagnosed new problem with uncertain prognosis? @ -[No] Drug Therapy requiring intensive monitoring for toxicity (Heparin, Nitro, Insulin, Cardizem)? @ -[No] Were any procedures done? @ -[No] Diagnosis/symptom? @ -Hematoma Acute, or Chronic, or Acute on Chronic? @ -Acute Uncomplicated (without systemic symptoms) or Complicated (systemic symptoms)? @ -Uncomplicated Side effects of treatment? @ -[No] Exacerbation, Progression, or Severe Exacerbation? @ -[No] Poses a threat to life or bodily function? How? (Chest pain, [place], [place], pneumonia, PE, COPD, DKA, ARF, appy, cholecystitis, CVA, Diverticulitis, Homicidal, Suicidal, threat to staff... and all critical care pts) @ -[No] (Kishan Urban) I personally saw the patient and performed the critical portion of the service. I discussed the patient care with the Dr. Urban. I directed management, care planning and final disposition of the patient. This includes, but not limited to, review of all lab work, radiological studies, EKG's, consultations, vital signs, and nursing notes. EKG interpreted by me (3pts min.) @None X-Rays interpreted by me (1 pt min.) @None CT interpreted by me ( 1pt min.) @None U/S interpreted by me (1 pt min.) @None (Uday Brady) Disposition Is patient prescribed a controlled substance at d/c from ED?: No Time of Disposition: 18:30 <Kishan Urban - Last Filed: 08/26/24 18:29> Is patient prescribed a controlled substance at d/c from ED?: No <Uday Brady - Last Filed: 08/26/24 18:49> Clinical Impression: Hematoma Narrative: Patient will be discharged home. Advised to take Tylenol and Motrin as needed for pain. Use ice packs as needed to reduce swelling. Tylenol starter pack was given to the patient in the ED. (Kishan Urban) Disposition: HOME SELF-CARE Condition: Stable Instructions (If sedation given, give patient instructions): Hematoma (ED) Additional Instructions: Every disease is a spectrum and a small chance still exists that a serious condition could develop, for this reason, please monitor yourself closely for new, changing or worsening symptoms, new confusion, changes in behavior, severe headache, changes in vision, numbness, weakness, chest pain, fever, inability to tolerate/keep down fluids or your medications, inability to follow up with outpatient providers as instructed and should you experience these symptoms or should you have any further concerns for your wellbeing please return to the ED or call 911 immediately. PLEASE call your primary care physician as soon as possible to arrange / discuss plan for followup appointment. Appointment in the next 1-3 days is strongly encouraged if possible. PLEASE let us know here before you leave if there is anything further we can do to be of any assistance. Take care and feel Better! Referrals: None,Stated [Primary Care Provider] - 1-2 days
[2024-08-26] MEDS: ACET/COD 300 MG/30 MG STARTER PACK 6 TAB BTL PO STA (18:53)
[2024-08-26 19:06] VITALS: BP 142/93; PULSE 70; RESP 16; TEMP 97.8
== END 2024-08-26 19:00 | disposition home or self-care (01) ==
LOC: EC 17:19
DX: S40.012A Contusion of left shoulder, initial encounter (principal); X58.XXXA Exposure to other specified factors, initial encounter
CPT/HCPCS: 99283

== ENCOUNTER 2024-09-25 07:49 | Emergency (ER) | payer OTHER ==
[2024-09-25 08:02] VITALS: BP 146/92; PULSE 82; TEMP 100.2
--- NOTE | 2024-09-25 08:41 | XR ---
EXAMINATION TYPE: XR chest 2V DATE OF EXAM: 09/25/2024 8:37 AM COMPARISON: 11/11/2023 CLINICAL INDICATION: Male, 33 years old with history of SOB productive cough, Chest pain TECHNIQUE: XR chest 2V views of the chest are obtained. FINDINGS: There is no focal air space opacity. No evidence for pneumothorax. No pleural effusion. The cardiac silhouette size is within normal limits. The osseous structures are grossly intact. IMPRESSION: 1. No acute cardiopulmonary process. [facility], , 09/25/2024 8:38 AM
[2024-09-25 08:46] LABS: Influenza A Not Detected (Not Detectd); Influenza B Detected (Not Detectd); RSV Not Detected (Not Detectd)
[2024-09-25 09:06] VITALS: RESP 20
--- NOTE | 2024-09-25 09:36 | ED ---
Fever HPI - General Chief Complaint: Fever Stated Complaint: flu like symptoms Time Seen by Provider: 09/25/24 08:02 Source: patient, RN notes reviewed Mode of arrival: ambulatory Limitations: no limitations - History of Present Illness Initial Comments: 33-year-old male presents emergency department chief complaint of fever chills cough congestion body. Patient states symptoms started on Wednesday. Has been taking DayQuil NyQuil not much relief. Patient denies any shortness of breath no GI symptoms no other associate symptoms. - Related Data Previous Rx's Medication Instructions Recorded Hydrocodone/Acetaminophen [[place]ren 1 each PO Q6HR PRN #12 tab 10/20/17 5-325] Ibuprofen 800 mg PO Q6HR PRN #20 tablet 10/20/17 Acetaminophen Tab [Tylenol] 500 mg PO Q6H PRN #60 tablet 07/05/23 Amoxic-Pot Clav 875-125Mg 1 tab PO Q12HR 7 Days #14 tab 07/05/23 [Augmentin 875-125] Ibuprofen [Motrin] 600 mg PO Q8HR PRN #30 tab 07/05/23 Allergies Allergy/AdvReac Type Severity Reaction Status Date / Time watermelon Allergy Swelling Verified 09/25/24 08:02 Review of Systems ROS Statement: Those systems with pertinent positive or pertinent negative responses have been documented in the HPI. ROS Other: All systems not noted in ROS Statement are negative. Past Medical History Past Medical History: No Reported History History of Any Multi-Drug Resistant Organisms: None Reported Past Surgical History: No Surgical Hx Reported Past Psychological History: No Psychological Hx Reported Smoking Status: Never smoker Past Alcohol Use History: Rare Past Drug Use History: Marijuana General Exam Limitations: no limitations General appearance: alert, in no apparent distress Head exam: Present: atraumatic, normocephalic, normal inspection Eye exam: Present: normal appearance, PERRL, EOMI. Absent: scleral icterus, conjunctival injection, periorbital swelling ENT exam: Present: normal exam, normal oropharynx, mucous membranes moist Neck exam: Present: normal inspection, full ROM. Absent: tenderness, meningismus, lymphadenopathy Respiratory exam: Present: normal lung sounds bilaterally. Absent: respiratory distress, wheezes, rales, rhonchi, stridor Cardiovascular Exam: Present: regular rate, normal rhythm, normal heart sounds. Absent: systolic murmur, diastolic murmur, rubs, gallop, clicks GI/Abdominal exam: Present: soft, normal bowel sounds. Absent: distended, tenderness, guarding, rebound, rigid Course Vital Signs 09/25/24 09/25/24 07:59 09:01 Temperature 100.2 F H Pulse Rate 82 Respiratory 18 20 Rate Blood Pressure 146/92 O2 Sat by Pulse 98 Oximetry Medical Decision Making - Medical Decision Making Was pt. sent in by a medical professional or institution (, ERAN, PLASTIC TILE SETTER, urgent care, hospital, or fci...) When possible be specific @ -No Did you speak to anyone other than the patient for history (EMS, parent, family, police, friend...)? What history was obtained from this source @ -No Did you review nursing and triage notes (agree or disagree)? Why? @ -I reviewed and agree with nursing and triage notes Were old charts reviewed (outside hosp., previous admission, EMS record, old EKG, old radiological studies, urgent care reports/EKG's, fci records)? Report findings @ -No old charts were reviewed Differential Diagnosis (chest pain, altered mental status, abdominal pain women, abdominal pain men, vaginal bleeding, weakness, fever, dyspnea, syncope, headache, dizziness, GI bleed, back pain, seizure, CVA, palpatations, mental health, musculoskeletal)? @ -COVID 19, RSV, influenza, pneumonia, acute bronchitis, URI, this list is not all inclusive EKG interpreted by me (3pts min.). @ -None X-rays interpreted by me (1pt min.). @ -Chest x-ray shows no acute cardiopulmonary process. CT interpreted by me (1pt min.). @ -None done U/S interpreted by me (1pt. min.). @ -None done What testing was considered but not performed or refused? (CT, X-rays, U/S, labs)? Why? @ -None What meds were considered but not given or refused? Why? @ -None Did you discuss the management of the patient with other professionals (professionals i.e. ERAN Marin, PLASTIC TILE SETTER, lab, RT, psych nurse, social work instructor, siphon operator, teacher, loan servicing officer, pillowcase turner)? Give summary @ -No Was smoking cessation discussed for >3mins.? @ -No Was critical care preformed (if so, how long)? @ -No Were there social determinants of health that impacted care today? How? (Homelessness, low income, unemployed, alcoholism, drug addiction, transpor tation, low edu. Level, literacy, decrease access to med. care, prison, rehab)? @ -No Was there de-escalation of care discussed even if they declined (Discuss DNR or withdrawal of care, Hospice)? DNR status @ -No What co-morbidities impacted this encounter? (DM, HTN, Smoking, COPD, CAD, Cancer, CVA, ARF, Chemo, Hep., AIDS, mental health diagnosis, sleep apnea, morbid obesity)? @ -None Was patient admitted / discharged? Hospital course, mention meds given and route, prescriptions, significant lab abnormalities, going to OR and other pertinent info. @ -[Disc patient is influenza B positive. Patient has no signs distress no hypoxia x-ray is negative patient discharged stable condition Undiagnosed new problem with uncertain prognosis? @ -No Drug Therapy requiring intensive monitoring for toxicity (Heparin, Nitro, Insulin, Cardizem)? @ -No Were any procedures done? @ -No Diagnosis/symptom? @ -Influenza B Acute, or Chronic, or Acute on Chronic? @ -Acute Uncomplicated (without systemic symptoms) or Complicated (systemic symptoms)? @Uncomplicated Side effects of treatment? @ -No Exacerbation, Progression, or Severe Exacerbation? @ -No Poses a threat to life or bodily function? How? (Chest pain, [place], [place], pneumonia, PE, COPD, DKA, ARF, appy, cholecystitis, CVA, Diverticulitis, Homicidal, Suicidal, threat to staff... and all critical care pts) @ -No - Lab Data Lab Results 09/25/24 Range/Units 08:03 Influenza Type A (PCR) Not Detected (Not Detectd) Influenza Type B (PCR) Detected A (Not Detectd) RSV (PCR) Not Detected (Not Detectd) SARS-CoV-2 (PCR) Not Detected (Not Detectd) Disposition Clinical Impression: Influenza B Disposition: HOME SELF-CARE Condition: Stable Instructions (If sedation given, give patient instructions): Influenza (ED) Additional Instructions: Please return to the Emergency Department if symptoms worsen or any other concerns. Is patient prescribed a controlled substance at d/c from ED?: No Referrals: None,Stated [Primary Care Provider] - 1-2 days Time of Disposition: :35
== END 2024-09-25 10:01 | disposition home or self-care (01) ==
LOC: EC 07:49
DX: J10.1 Influenza due to other identified influenza virus with other respiratory manifestations (principal); Z91.018 Allergy to other foods
CPT/HCPCS: 71046; 87636; 99284